=== PATIENT | male | born 1955 | race Caucasian/White ===

== ENCOUNTER → 2016-07-15 | Outpatient (CLI) | payer BC, OTHER ==
--- NOTE | 2016-07-15 15:13 | XR ---
EXAMINATION TYPE: XR foot complete RT DATE OF EXAM: 07/15/2016 3:08 PM CLINICAL HISTORY: Right foot pain with blister over heel. TECHNIQUE: Frontal, lateral, and oblique images of the right foot are obtained. COMPARISON: None FINDINGS: There is no acute fracture/dislocation evident in the right foot. Some varus positioning o f distal toes is noted. The joint spaces in the right foot appear within normal limits. Mild subcutan eous edema over the plantar surface is present. No significant calcaneal spurring is noted. IMPRESSION: As above.
== END | disposition home or self-care (01) ==
LOC: RADXRMAIN 14:52
PROVIDERS: ATTEND Family Medicine
DX: M79.671 Pain in right foot (principal); R60.9 Edema, unspecified

== ENCOUNTER 2016-09-22 20:53 | Emergency (ER) | payer OTHER ==
[2016-09-22] MEDS ORDERED: SODIUM CHLORIDE 0.9% 1,000 ML IV STA (21:02)
[2016-09-22] MEDS ORDERED: MORPHINE SULFATE 4 MG/ML SYRINGE IV STA (21:02)
--- NOTE | 2016-09-22 21:07 | ED ---
General Adult HPI - General Chief complaint: Abdominal Pain Stated complaint: Abd pain Time Seen by Provider: 09/22/16 21:02 Source: patient, RN notes reviewed, old records reviewed Mode of arrival: ambulatory Limitations: no limitations - History of Present Illness Initial comments: This is a 6-year-old male ER for evaluation of bowel pain. Patient having episodic increasing abdominal pain, pressure. Patient has no abdominal surgery history, no fevers or travel she'll nausea vomiting or diarrhea. Patient states pain is is increasing of this time again no fevers. No modifying factors for pain - Related Data Home Medications Medication Instructions Recorded Confirmed Bismuth Subsalicylate 524 mg PO Q1H PRN MDD 8 DOSES 09/22/16 09/22/16 [Pepto-Bismol] HYDROcodone/APAP 7.5-325MG [[place] 1 tab PO TID PRN 09/22/16 09/22/16 7.5-325] Meloxicam 15 mg PO DAILY 09/22/16 09/22/16 tiZANidine [Zanaflex] 4 mg PO BID PRN 09/22/16 09/22/16 Allergies Allergy/AdvReac Type Severity Reaction Status Date / Time No Known Allergies Allergy Verified 09/22/16 21:19 Review of Systems ROS Statement: Those systems with pertinent positive or pertinent negative responses have been documented in the HPI. ROS Other: All systems not noted in ROS Statement are negative. Past Medical History Additional Past Medical History / Comment(s): back and neck pain. History of Any Multi-Drug Resistant Organisms: None Reported Past Surgical History: No Surgical Hx Reported Past Psychological History: No Psychological Hx Reported Smoking Status: Current every day smoker Past Alcohol Use History: None Reported Past Drug Use History: None Reported General Exam Limitations: no limitations General appearance: alert, in no apparent distress Head exam: Present: atraumatic, normocephalic, normal inspection Eye exam: Present: normal appearance, PERRL, EOMI. Absent: scleral icterus, conjunctival injection, periorbital swelling ENT exam: Present: normal exam, mucous membranes moist Neck exam: Present: normal inspection. Absent: tenderness, meningismus, lymphadenopathy Respiratory exam: Present: normal lung sounds bilaterally. Absent: respiratory distress, wheezes, rales, rhonchi, stridor Cardiovascular Exam: Present: regular rate, normal rhythm, normal heart sounds. Absent: systolic murmur, diastolic murmur, rubs, gallop, clicks GI/Abdominal exam: Present: soft, normal bowel sounds. Absent: distended, tenderness, guarding, rebound, rigid Extremities exam: Present: normal inspection, full ROM, normal capillary refill. Absent: tenderness, pedal edema, joint swelling, calf tenderness Back exam: Present: normal inspection Neurological exam: Present: alert, oriented X3, CN II-XII intact Psychiatric exam: Present: normal affect, normal mood Skin exam: Present: warm, dry, intact, normal color. Absent: rash Course Vital Signs 09/22/16 09/22/16 09/22/16 20:55 21:14 22:39 Temperature 99.1 F 98.5 F Pulse Rate 62 57 L 52 L Respiratory 16 16 16 Rate Blood Pressure 156/87 150/88 153/84 O2 Sat by Pulse 99 98 98 Oximetry 09/22/16 23:28 Temperature 97.8 F Pulse Rate 52 L Respiratory 18 Rate Blood Pressure 148/92 O2 Sat by Pulse 100 Oximetry Medical Decision Making - Medical Decision Making 60 male here with nonspecific abdominal pain. Patient will be discharged home - Lab Data Result diagrams: 09/22/16 21:37 09/22/16 21:37 Lab Results 09/22/16 09/22/16 09/22/16 Range/Units 21:37 21:37 21:37 WBC 8.7 (3.8-10.6) k/uL RBC 5.53 (4.30-5.90) m/uL Hgb 17.7 H (13.0-17.5) gm/dL Hct 51.8 (39.0-53.0) % MCV 93.6 (80.0-100.0) fL MCH 32.0 (25.0-35.0) pg MCHC 34.2 (31.0-37.0) g/dL RDW 13.5 (11.5-15.5) % Plt Count 187 (150-450) k/uL Neutrophils % 74 % Lymphocytes % 16 % Monocytes % 7 % Eosinophils % 1 % Basophils % 1 % Neutrophils # 6.4 (1.3-7.7) k/uL Lymphocytes # 1.4 (1.0-4.8) k/uL Monocytes # 0.6 (0-1.0) k/uL Eosinophils # 0.1 (0-0.7) k/uL Basophils # 0.1 (0-0.2) k/uL Sodium 140 (137-145) mmol/L Potassium 4.4 (3.5-5.1) mmol/L Chloride 101 (98-107) mmol/L Carbon Dioxide 30 (22-30) mmol/L Anion Gap 9 mmol/L BUN 16 (9-20) mg/dL Creatinine 0.80 (0.66-1.25) mg/dL Est GFR (MDRD) Af Amer >60 (>60 ml/min/1.73 sqM) Est GFR (MDRD) Non-Af >60 (>60 ml/min/1.73 sqM) Glucose 110 H (74-99) mg/dL Plasma Lactic Acid Matt (0.7-2.0) mmol/L Calcium 9.7 (8.4-10.2) mg/dL Total Bilirubin 1.3 (0.2-1.3) mg/dL AST 17 (17-59) U/L ALT 23 (21-72) U/L Alkaline Phosphatase 67 (38-126) U/L Total Creatine Kinase 44 L (55-170) U/L CK-MB (CK-2) <0.2 (0.0-2.4) ng/mL CK-MB (CK-2) Rel Index Troponin I <0.012 (0.000-0.034) ng/mL Total Protein 7.0 (6.3-8.2) g/dL Albumin 4.3 (3.5-5.0) g/dL Amylase 56 (30-110) U/L Lipase 76 (23-300) U/L 09/22/16 Range/Units 21:37 WBC (3.8-10.6) k/uL RBC (4.30-5.90) m/uL Hgb (13.0-17.5) gm/dL Hct (39.0-53.0) % MCV (80.0-100.0) fL MCH (25.0-35.0) pg MCHC (31.0-37.0) g/dL RDW (11.5-15.5) % Plt Count (150-450) k/uL Neutrophils % % Lymphocytes % % Monocytes % % Eosinophils % % Basophils % % Neutrophils # (1.3-7.7) k/uL Lymphocytes # (1.0-4.8) k/uL Monocytes # (0-1.0) k/uL Eosinophils # (0-0.7) k/uL Basophils # (0-0.2) k/uL Sodium (137-145) mmol/L Potassium (3.5-5.1) mmol/L Chloride (98-107) mmol/L Carbon Dioxide (22-30) mmol/L Anion Gap mmol/L BUN (9-20) mg/dL Creatinine (0.66-1.25) mg/dL Est GFR (MDRD) Af Amer (>60 ml/min/1.73 sqM) Est GFR (MDRD) Non-Af (>60 ml/min/1.73 sqM) Glucose (74-99) mg/dL Plasma Lactic Acid Matt 1.1 (0.7-2.0) mmol/L Calcium (8.4-10.2) mg/dL Total Bilirubin (0.2-1.3) mg/dL AST (17-59) U/L ALT (21-72) U/L Alkaline Phosphatase (38-126) U/L Total Creatine Kinase (55-170) U/L CK-MB (CK-2) (0.0-2.4) ng/mL CK-MB (CK-2) Rel Index Troponin I (0.000-0.034) ng/mL Total Protein (6.3-8.2) g/dL Albumin (3.5-5.0) g/dL Amylase (30-110) U/L Lipase (23-300) U/L - Radiology Data Radiology results: report reviewed (X-ray KUB and CT abdomen and pelvis is negative for acute disease), image reviewed Disposition Clinical Impression: Abdominal pain Disposition: HOME SELF-CARE Condition: Good Instructions: Abdominal Pain (ED) Referrals: Mor Laughlin MD [Primary Care Provider] - 1-2 days
[2016-09-22 21:51] LABS: Basophils # (A) 0.1 k/uL (0-0.2); Basophils % (A) 1 %; CH 32.3; CHCM 34.7; Eosinophils # (A) 0.1 k/uL (0-0.7); Eosinophils % (A) 1 %; HCT 51.8 % (39.0-53.0); HDW 2.46; HGB 17.7 gm/dL (13.0-17.5); Luc # (Auto) 0.15; Luc % (Auto) 2; Lymphocytes # (A) 1.4 k/uL (1.0-4.8); Lymphocytes % (A) 16 %; MCHC 34.2 g/dL (31.0-37.0); MCV 93.6 fL (80.0-100.0); Mean Platelet Volume 7.8; Monocytes # (A) 0.6 k/uL (0-1.0); Monocytes % (A) 7 %; Neutrophils # (A) 6.4 k/uL (1.3-7.7); Neutrophils % (A) 74 %; RBC 5.53 m/uL (4.30-5.90); RDW 13.5 % (11.5-15.5); WBC 8.7 k/uL (3.8-10.6); WBC (Perox) 8.55
[2016-09-22 22:01] LABS: ALT 23 U/L (21-72); AST 17 U/L (17-59); Alkaline Phosphatase 67 U/L (38-126); Amylase 56 U/L (30-110); Anion Gap 9 mmol/L; Blood Urea Nitrogen 16 mg/dL (9-20); Calcium 9.7 mg/dL (8.4-10.2); Carbon Dioxide 30 mmol/L (22-30); Chloride 101 mmol/L (98-107); Glucose 110 mg/dL (74-99); Non-African American GFR(MDRD) >60 (>60 ml/min/1.73 sqM); Potassium 4.4 mmol/L (3.5-5.1); Sodium 140 mmol/L (137-145); Total Bilirubin 1.3 mg/dL (0.2-1.3)
--- NOTE | 2016-09-22 22:04 | XR ---
EXAMINATION TYPE: XR KUB DATE OF EXAM: 09/22/2016 9:53 PM COMPARISON: NONE HISTORY: Abdominal pain TECHNIQUE: 2 views FINDINGS: There is no sign of intestinal obstruction or pneumoperitoneum. Fecal pattern is normal. Ginger ng bases are clear. There are no pathologic calcifications over the kidneys. IMPRESSION: Nonacute abdomen.
[2016-09-22] MEDS ORDERED: ONDANSETRON 4 MG/2 ML VIAL IVP STA (22:07)
[2016-09-22] MEDS ORDERED: PANTOPRAZOLE 40 MG/10 ML VIAL IVP STA (22:07)
[2016-09-22] MEDS ORDERED: RX INFO: IV CONTRAST WAS GIVEN 1 EACH MISC MISCELLANE PRN (22:07)
[2016-09-22 22:11] LABS: Creatine Kinase 44 U/L (55-170)
[2016-09-22 22:25] LABS: Creatine Kinase MB <0.2 ng/mL (0.0-2.4); Troponin I <0.012 ng/mL (0.000-0.034)
[2016-09-22 22:46] VITALS: PULSE 52
--- NOTE | 2016-09-22 22:53 | CT ---
EXAM: CT Abdomen and Pelvis With Intravenous Contrast. CLINICAL HISTORY: Reason: Pain TECHNIQUE: Axial computed tomography images of the abdomen and pelvis with intravenous contrast. CTDI is 10 mGy and DLP is 362.2 mGy-cm. This CT exam was performed using one or more of the following dose reduction techniques: automated exposure control, adjustment of the mA and/or kV according to patient size, and/or use of iterative reconstruction technique. COMPARISON: No relevant prior studies available. FINDINGS: Lower thorax: No acute findings. ABDOMEN: Liver: Unremarkable. No mass. Gallbladder and bile ducts: Unremarkable. No calcified stones. No ductal dilation. Pancreas: Unremarkable. No ductal dilation. No mass. Spleen: Unremarkable. No splenomegaly. Adrenals: Unremarkable. No mass. Kidneys and ureters: Unremarkable. No hydronephrosis. No solid mass. PELVIS: Bladder: Unremarkable. No mass. Reproductive: Unremarkable as visualized. Appendix: No findings to suggest acute appendicitis. ABDOMEN + PELVIS: Stomach and bowel: Moderate sigmoid diverticulosis, without evidence of diverticulitis. No obstruction. Peritoneum: Unremarkable. No significant fluid collection. No free air. Lymph nodes: Unremarkable. No enlarged lymph nodes. Vasculature: Moderate atherosclerotic disease, without abdominal aortic aneurysm. Bones: No acute fracture. IMPRESSION: 1. No acute findings in the abdomen or pelvis. 2. Moderate sigmoid diverticulosis, without evidence of diverticulitis.
[2016-09-22 23:30] VITALS: BP 148/92; RESP 18; TEMP 97.8
[2016-09-22] MEDS ORDERED: MORPHINE SULFATE 2 MG/ML SYRINGE IVP ONE (23:44)
== END 2016-09-22 23:45 | disposition home or self-care (01) ==
LOC: EC 20:53
DX: R10.9 Unspecified abdominal pain (principal); F17.200 Nicotine dependence, unspecified, uncomplicated; Z79.1 Long term (current) use of non-steroidal anti-inflammatories (NSAID); Z79.899 Other long term (current) drug therapy
CPT/HCPCS: 99284; 96374; 96375; 96376; 36415; 80053; 82150; 82550; 82553; 83605; 83690; 84484; 85025; 74000; 74177; 96361 ×2; J2270 ×2; Q9967; C9113

== ENCOUNTER 2016-10-30 07:48 | Day surgery (SDC) | payer OTHER ==
[2016-10-28 09:39] VITALS: BMI 17.3
[~2016-10-30 07:48] MED LIST: LACTATED RINGERS 1,000 ML IV SCH
[2016-10-30 08:12] VITALS: RESP 16; TEMP 97.5
[2016-10-30] MEDS ORDERED: LIDOCAINE 1% 20 ML VIAL (10MG/ML) FOR IV START INTRADERMA ONE (08:19)
[2016-10-30] MEDS ORDERED: PROPOFOL 10 MG/ML 20 ML VIAL IV ONE (09:54)
[2016-10-30] MEDS ORDERED: LIDOCAINE 1% INJ 10MG/ML (20 ML MDV) ONE (09:54)
--- NOTE | 2016-10-30 10:04 | P.GSHP ---
History of Present Illness H&P Date: 10/30/16 Chief Complaint: Abdominal pain Patient here today for upper endoscopy. He has not had one previously. His having upper abdominal pain. He went to the emergency department recently. He had a CAT scan that showed no definite abnormalities. Denies rectal bleeding or melena. Past Medical History Additional Past Medical History / Comment(s): back and neck pain. History of Any Multi-Drug Resistant Organisms: None Reported Past Surgical History: No Surgical Hx Reported Past Anesthesia/Blood Transfusion Reactions: No Reported Reaction Additional Past Anesthesia/Blood Transfusion Reaction / Comment(s): NO PRIOR ANESTHESIA OR SX HX Smoking Status: Current every day smoker - Past Family History Mother Family Medical History: No Reported History Medications and Allergies Home Medications Medication Instructions Recorded Confirmed Type HYDROcodone/APAP 7.5-325MG [[place] 1 tab PO TID PRN 09/22/16 10/30/16 History 7.5-325] Meloxicam 15 mg PO DAILY 09/22/16 10/30/16 History tiZANidine [Zanaflex] 4 mg PO BID PRN 09/22/16 10/30/16 History Ranitidine HCl 300 mg PO DAILY 10/28/16 10/30/16 History Allergies Allergy/AdvReac Type Severity Reaction Status Date / Time No Known Allergies Allergy Verified 10/28/16 09:32 Surgical - Exam Vital Signs Temp Pulse Resp BP Pulse Ox 97.5 F L 48 L 16 181/93 99 10/30/16 08:11 10/30/16 08:11 10/30/16 08:11 10/30/16 08:11 10/30/16 08:11 Physical exam: General: Well-developed, well-nourished HEENT: Normocephalic, sclerae nonicteric Abdomen: Nontender, nondistended Extremities: No edema Neuro: Alert and oriented Assessment and Plan (1) Abdominal pain Narrative/Plan: Will proceed with upper endoscopy at this time Status: Acute
--- NOTE | 2016-10-30 10:14 | P.PCN ---
Date of Procedure: 10/30/16 Preoperative Diagnosis: Postoperative Diagnosis: Procedure(s) Performed: Preoperative Dx: Abdominal pain Postoperative Dx: Duodenal ulcer, small hiatal hernia, gastritis Procedure: EGD with Bx Anesthesia: Sedation Endoscopist: Dr. Lang Specimens: Antrum Endoscopic Procedure: The patient was on the endoscopy table in the left decubitus position. The Olympus gastroscope was inserted into the oropharynx and passed under direct visualization to the region of the third portion of the duodenum. From that point the scope was slowly withdrawn inspecting all surfaces carefully. There was mild duodenitis present. In the duodenal bulb there was noted to be a less than 1 cm ulceration involving the posterior wall. No stigmata of recent bleeding was seen. The pylorus was widely patent. The stomach had diffuse gastritis. Biopsies of antrum took place. Retroflexion revealed a small sliding hiatal hernia. The esophagus was carefully examined. There were no neoplastic inflammatory or polypoid lesions throughout the visualized esophagus. The patient was then taken to the recovery room in stable condition per anesthesia guidelines. Recommendations: Continue antiacid therapy. Advise short-term follow-up in 3-6 months to confirm resolution of this ulcer. Implants: Indications for Procedure: Operative Findings: Description of Procedure:
[2016-10-30 10:48] VITALS: BP 166/91; PULSE 50
== END 2016-10-30 11:10 | disposition home or self-care (01) ==
LOC: ORWHC2ENDO 07:48
PROVIDERS: ATTEND Surgery
DX: K26.9 Duodenal ulcer, unspecified as acute or chronic, without hemorrhage or perforation (principal); K29.50 Unspecified chronic gastritis without bleeding; K29.80 Duodenitis without bleeding; K44.9 Diaphragmatic hernia without obstruction or gangrene; K21.9 Gastro-esophageal reflux disease without esophagitis; G89.29 Other chronic pain; F17.200 Nicotine dependence, unspecified, uncomplicated; Z79.1 Long term (current) use of non-steroidal anti-inflammatories (NSAID); Z79.899 Other long term (current) drug therapy
CPT/HCPCS: 88305; 88342; 43239; J2001; J2704

== ENCOUNTER → 2017-01-02 | Outpatient (CLI) | payer OTHER ==
--- NOTE | 2017-01-02 13:31 | MR ---
EXAMINATION TYPE: MR lumbar spine wo con DATE OF EXAM: 01/02/2017 COMPARISON: 10/05/2015 HISTORY: cervicalgia, lumbago TECHNIQUE: T1 and T2 axial and sagittal images of the lumbar spine are submitted. FINDINGS: There is abnormal signal within the visualized spinal cord at the level of L1 seen on the a xial image which may be artifactual. 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 There is a scoliotic curvature of the vertebral column. At L1-2 there is very mild broad-based central disc bulging but no canal stenosis. Neural foramina ar e patent. At L2-3 there is no disc herniation or canal stenosis. Mild hypertrophic change of the facets. Neural foramina patent. Mild circumferential disc bulging. At L3-4 there is degenerative disc disease and broad-based central and left paracentral disc bulging with hypertrophic change of the facets and ligamentum flavum. There is mild central stenosis and mild bilateral foraminal encroachment. At L4-5 there is broad-based central disc bulging with ligamentum flavum and facet arthropathy. There is mild central stenosis and mild bilateral foraminal encroachment. At L5-S1 there is more advanced facet arthropathy with no canal stenosis. There is left lateral disc bulging resulting in mild to moderate left foraminal encroachment.. IMPRESSION: 1. Abnormal signal within the spinal cord at the level L1 may be artifactual recommend short-term fol low-up or postcontrast imaging. 2. Multilevel mild degenerative disc disease with multilevel disc bulging and hypertrophic changes re sult in mild canal stenosis L3-4 and L4-L5 with foraminal encroachment. 3. Left lateral disc bulging L5-S1 with moderate left foraminal encroachment. EXAMINATION TYPE: MR cspine wo con DATE OF EXAM: 01/02/2017 COMPARISON: 10/05/2015 HISTORY: cervicalgia, lumbago TECHNIQUE: T1 sagittal and coronal, T2 sagittal, and gradient echo axial views of the cervical spine are submitted. FINDINGS: The cranial cervical junction is preserved. No abnormal signal the visualized spinal cord.. At C2-3 there is no disc herniation or canal stenosis. Neural foramina patent. At C3-4 there is posterior spondylosis and minimal retrolisthesis of C2 on C3 which is stable. Degene rative disc disease and bilateral uncovertebral joint hypertrophy is noted which results in moderate bilateral foraminal encroachment. Mild central stenosis. At C4-5 there is severe degenerative disc disease with posterior spondylosis and uncovertebral joint hypertrophy. Broad-based disc bulging seen with moderate to severe right-sided foraminal encroachment and mild to moderate left foraminal encroachment. There is mild central stenosis. At C5-6 there is degenerative disc disease with uncovertebral joint hypertrophy bilaterally moderate bilateral foraminal encroachment. No canal stenosis or focal herniation. Mild facet arthropathy. At C6-7 there is a central disc bulge or small protrusion with mild effacement of thecal sac but no c anal stenosis. Neural foramina patent. At C7-T1 there is right paracentral and lateral disc bulge or small protrusion appears stable. Mild r ight-sided foraminal encroachment. No Canal stenosis. IMPRESSION: 1. Multilevel degenerative disc disease with mild canal stenosis C3-4 and C4-5 due to posterior spon dylosis and hypertrophic changes. 2. Disc bulging or small protrusion C6-7 and C7-T1 are stable. 3. Stable multilevel foraminal encroachment.
== END | disposition home or self-care (01) ==
LOC: RADMRIMAIN 12:11
PROVIDERS: ATTEND Nurse Practitioner Acute Care
DX: M48.02 Spinal stenosis, cervical region (principal); M50.31 Other cervical disc degeneration, high cervical region; M47.812 Spondylosis without myelopathy or radiculopathy, cervical region; M48.06 Spinal stenosis, lumbar region; M51.27 Other intervertebral disc displacement, lumbosacral region; M51.36 Other intervertebral disc degeneration, lumbar region
CPT/HCPCS: 72141; 72148

== ENCOUNTER → 2017-01-18 | Outpatient (CLI) | payer OTHER ==
[2017-01-18 12:21] LABS: Blood Urea Nitrogen 17 mg/dL (9-20); Non-African American GFR(MDRD) >60 (>60 ml/min/1.73 sqM)
--- NOTE | 2017-01-19 12:28 | MR ---
EXAMINATION TYPE: MR lumbar spine w con DATE OF EXAM: 01/18/2017 1:06 PM COMPARISON: MRI lumbar spine 01/02/2017 HISTORY: abnormal mri CONTRAST: The patient was injected with 5 mL intravenous Gadavist gadolinium contrast. Sagittal and axial T1-weighted postcontrast enhanced images obtained. The spinal cord at the L1 level does not demonstrate evidence for an enhancing lesion or pathologic e nhancement. Lumbar segments are intact. No paraspinal masses are identified. Conus medullaris has a normal appe arance. IMPRESSION: 1. No evidence for pathologic enhancement or enhancing lesion within the spinal cord at the L1 level. Other findings as outlined on prior MRI of the spine dated 01/02/2017
== END | disposition home or self-care (01) ==
LOC: RADMRIMAIN 11:54
PROVIDERS: ATTEND Nurse Practitioner Acute Care
DX: M54.5 Low back pain (principal)
CPT/HCPCS: 82565; 84520; 72149; 36415; A9581

== ENCOUNTER 2017-02-07 10:34 | Day surgery (SDC) | payer OTHER ==
[2017-02-04 15:09] VITALS: BMI 19.2
[2017-02-07] MEDS ORDERED: LACTATED RINGERS 1,000 ML IV ONE (12:19)
[2017-02-07 12:20] VITALS: RESP 18; TEMP 98
[2017-02-07] MEDS ORDERED: LIDOCAINE 1% 20 ML VIAL (10MG/ML) FOR IV START INTRADERMA ONE (12:20)
[2017-02-07] MEDS ORDERED: GLYCOPYRROLATE 0.2 MG/ML 2 ML VIAL ONE (12:45)
[2017-02-07] MEDS ORDERED: PROPOFOL 10 MG/ML 20 ML VIAL IV ONE (12:45)
[2017-02-07] MEDS ORDERED: LIDOCAINE 1% INJ 10MG/ML (20 ML MDV) ONE (12:45)
--- NOTE | 2017-02-07 12:47 | P.GSHP ---
History of Present Illness H&P Date: 02/07/17 Chief Complaint: GERD, history of H. pylori Patient underwent upper endoscopy in October of this year. He was found have H. pylori positive biopsies along with a duodenal ulcer. He feels well at this time. No abdominal pain. No melena or rectal bleeding. Past Medical History Past Medical History: Musculoskeletal Disorder Additional Past Medical History / Comment(s): back and neck pain, hx. duodenal ulcer, abd. pain much improved History of Any Multi-Drug Resistant Organisms: None Reported Past Surgical History: No Surgical Hx Reported Additional Past Surgical History / Comment(s): teeth pulled, EGD Past Anesthesia/Blood Transfusion Reactions: No Reported Reaction Additional Past Anesthesia/Blood Transfusion Reaction / Comment(s): NO PRIOR ANESTHESIA OR SX HX Smoking Status: Current every day smoker - Past Family History Mother Family Medical History: No Reported History Medications and Allergies Home Medications Medication Instructions Recorded Confirmed Type HYDROcodone/APAP 7.5-325MG [[place] 1 tab PO TID PRN 09/22/16 02/04/17 History 7.5-325] Omeprazole [PriLOSEC] 20 mg PO AC-BRKFST #90 cap 10/30/16 02/04/17 Rx Sucralfate [Carafate] 1 gm PO ACHS #120 tab 10/30/16 02/04/17 Rx Allergies Allergy/AdvReac Type Severity Reaction Status Date / Time No Known Allergies Allergy Verified 02/04/17 14:35 Surgical - Exam Vital Signs Temp Pulse Resp BP Pulse Ox 98.0 F 53 L 18 133/88 100 02/07/17 12:19 02/07/17 12:19 02/07/17 12:19 02/07/17 12:19 02/07/17 12:19 Physical exam: General: Well-developed, well-nourished HEENT: Normocephalic, sclerae nonicteric Abdomen: Nontender, nondistended Extremities: No edema Neuro: Alert and oriented Assessment and Plan (1) GERD (gastroesophageal reflux disease) Narrative/Plan: Will proceed with upper endoscopy at this time. Status: Acute
--- NOTE | 2017-02-07 12:56 | P.PCN ---
Date of Procedure: 02/07/17 Procedure(s) Performed: Preoperative Dx: Peptic ulcer disease, history of H. pylori Postoperative Dx: Minimal gastritis Procedure: EGD with Bx Anesthesia: Sedation Endoscopist: Dr. Lang Specimens: Antrum Endoscopic Procedure: The patient was on the endoscopy table in the left decubitus position. The Olympus gastroscope was inserted into the oropharynx and passed under direct visualization to the region of the third portion of the duodenum. From that point the scope was slowly withdrawn inspecting all surfaces carefully. There were no neoplastic inflammatory or polypoid lesions throughout the duodenum. The pylorus was widely patent. The stomach was carefully inspected. There was minimal gastritis. A biopsy of the antrum took place to rule out H. pylori. Retroflexion revealed a normal hiatus. The esophagus was then carefully examined. There were no neoplastic inflammatory or polypoid lesions throughout the visualized esophagus. The patient was then taken to the recovery room in stable condition per anesthesia guidelines. Recommendations: Await biopsy results. Continue antiacid therapy.
[2017-02-07 13:39] VITALS: BP 135/85; PULSE 77
== END 2017-02-07 14:01 | disposition home or self-care (01) ==
LOC: ORWHC2ENDO 10:34
PROVIDERS: ATTEND Surgery
DX: K21.9 Gastro-esophageal reflux disease without esophagitis (principal); K29.50 Unspecified chronic gastritis without bleeding; F17.200 Nicotine dependence, unspecified, uncomplicated; Z79.899 Other long term (current) drug therapy
CPT/HCPCS: 88305; 88342; 43239; J2001; J2704

== ENCOUNTER 2020-11-16 08:06 | Day surgery (SDC) | payer MEDICARE, OTHER ==
[2020-11-14 14:39] VITALS: BMI 17.6
[2020-11-16 08:20] VITALS: TEMP 97.8
[2020-11-16] MEDS ORDERED: LACTATED RINGERS 1,000 ML IV ONE (08:20)
[2020-11-16] MEDS ORDERED: PROPOFOL 10 MG/ML 20 ML VIAL IV ONE (08:35)
[2020-11-16] MEDS ORDERED: LIDOCAINE 1% INJ 10MG/ML (20 ML MDV) ONE (08:35)
--- NOTE | 2020-11-16 08:38 | P.GSHP ---
History of Present Illness H&P Date: 11/16/20 Chief Complaint: Screening colonoscopy This a 64-year-old male who presents today for screening colonoscopy. Patient denies any significant GI complaints. Past Medical History Past Medical History: Musculoskeletal Disorder Additional Past Medical History / Comment(s): back and neck pain. History of Any Multi-Drug Resistant Organisms: None Reported Past Surgical History: No Surgical Hx Reported Additional Past Surgical History / Comment(s): teeth pulled, EGD Past Anesthesia/Blood Transfusion Reactions: No Reported Reaction Additional Past Anesthesia/Blood Transfusion Reaction / Comment(s): NO PRIOR ANESTHESIA OR SX HX Smoking Status: Current every day smoker - Past Family History Mother Family Medical History: No Reported History Medications and Allergies Home Medications Medication Instructions Recorded Confirmed Type oxyCODONE HCL/ACETAMINOPHEN 1 each PO TID 11/14/20 11/14/20 History [Oxycodone-Acetaminophn 7.5-325] Allergies Allergy/AdvReac Type Severity Reaction Status Date / Time No Known Allergies Allergy Verified 11/14/20 14:33 Surgical - Exam Vital Signs Temp Pulse Resp BP Pulse Ox 97.8 F 84 18 161/94 97 11/16/20 08:19 11/16/20 08:19 11/16/20 08:19 11/16/20 08:19 11/16/20 08:19 - General well developed, well nourished, no distress - Eyes PERRL - ENT normal pinna - Neck no masses - Respiratory normal expansion - Cardiovascular Rhythm: regular - Abdomen Abdomen: soft, non tender Assessment and Plan Assessment: We'll perform screening colonoscopy
--- NOTE | 2020-11-16 08:52 | P.OP ---
Date of Procedure: 11/16/20 Preoperative Diagnosis: Screening colonoscopy Postoperative Diagnosis: Diverticulosis Tortuous colon Procedure(s) Performed: Colonoscopy Anesthesia: MAC Surgeon: George Brian Pathology: none sent Condition: stable Disposition: PACU Description of Procedure: Patient's placed on the endoscopy table in the lateral position. He received IV sedation. Digital rectal exam was performed which revealed no abnormalities. The flexible colonoscope was then placed patient anus and passed throughout the colon. The colonoscope 90 passed beyond the sigmoid colon severe tortuosity valve. At this point the scope was withdrawn. The pediatric scope was reinserted. And once again the pediatric scope could not traverse sigmoid colon. Due to tortuosity of the bowel. This puts withdrawn. Patient was scheduled for a barium enema.
[2020-11-16 09:14] VITALS: RESP 18
[2020-11-16 09:48] VITALS: BP 128/886; PULSE 62
--- NOTE | 2020-11-16 12:09 | FL ---
EXAMINATION TYPE: FL barium enema w air contrast DATE OF EXAM: 11/16/2020 COMPARISON: NONE HISTORY: Change in bowel habits. TECHNIQUE: Barium and air were instilled into the colon from the rectum to the cecum. Multiple spot and overhead images are obtained. FINDINGS: I do not see evidence for annular constricting lesion or fungating mass. No polypoid lesio ns are identified. Mucosal fold pattern has a normal appearance. No evidence for inflammatory bowel disease. Normal-appearing appendix which is retrocecal. No significant diverticular disease. IMPRESSION: No significant abnormality identified at this time. Symptoms persist consider direct visualization.
== END 2020-11-16 09:50 | disposition home or self-care (01) ==
LOC: ORWHC2ENDO 08:06
PROVIDERS: ATTEND Surgery
DX: Z12.11 Encounter for screening for malignant neoplasm of colon (principal); F17.200 Nicotine dependence, unspecified, uncomplicated; M19.90 Unspecified osteoarthritis, unspecified site; K21.9 Gastro-esophageal reflux disease without esophagitis
CPT/HCPCS: 45378; 74280; J2001; J2704

== ENCOUNTER 2020-12-24 10:31 | Emergency (ER) | payer MEDICARE ==
[2020-12-24 10:36] VITALS: BP 128/86; PULSE 65; RESP 16
[2020-12-24 10:39] VITALS: TEMP 98
[2020-12-24] MEDS ORDERED: KETOROLAC 15 MG/ML 1 ML VIAL IM STA (10:46)
--- NOTE | 2020-12-24 10:56 | ED ---
General Adult HPI - General Chief complaint: Extremity Injury, Upper Stated complaint: Wrist injury Time Seen by Provider: 12/24/20 10:37 Source: patient, RN notes reviewed Mode of arrival: ambulatory Limitations: no limitations - History of Present Illness Initial comments: 65-year-old male with a past medical history of back and neck pain present to [facility] emergency room for a chief complaint of right wrist pain. Patient states about a week ago he was skating in [place] when he fell on the right wrist. Patient states it has been swollen since he fell and he has had pain in the wrist and hand intermittently. Patient did not hit his head. Patient denies any other injuries.Patient has no other complaints at this time including shortness of breath, chest pain, abdominal pain, nausea or vomiting, headache, or visual changes. - Related Data Home Medications Medication Instructions Recorded Confirmed oxyCODONE HCL/ACETAMINOPHEN 1 each PO TID 11/14/20 11/14/20 [Oxycodone-Acetaminophn 7.5-325] Allergies Allergy/AdvReac Type Severity Reaction Status Date / Time No Known Allergies Allergy Verified 12/24/20 10:36 Review of Systems ROS Statement: Those systems with pertinent positive or pertinent negative responses have been documented in the HPI. ROS Other: All systems not noted in ROS Statement are negative. Past Medical History Past Medical History: Musculoskeletal Disorder Additional Past Medical History / Comment(s): back and neck pain. History of Any Multi-Drug Resistant Organisms: None Reported Past Surgical History: No Surgical Hx Reported Additional Past Surgical History / Comment(s): teeth pulled, EGD Past Anesthesia/Blood Transfusion Reactions: No Reported Reaction Additional Past Anesthesia/Blood Transfusion Reaction / Comment(s): NO PRIOR ANESTHESIA OR SX HX Past Psychological History: No Psychological Hx Reported Smoking Status: Current every day smoker Past Alcohol Use History: Rare Past Drug Use History: None Reported - Past Family History Mother Family Medical History: No Reported History General Exam Limitations: no limitations General appearance: alert, in no apparent distress Head exam: Present: atraumatic Eye exam: Present: normal appearance, PERRL, EOMI. Absent: scleral icterus ENT exam: Present: normal exam, mucous membranes moist Neck exam: Present: normal inspection, full ROM. Absent: tenderness Respiratory exam: Present: normal lung sounds bilaterally. Absent: respiratory distress, wheezes Cardiovascular Exam: Present: regular rate, normal rhythm, normal heart sounds Extremities exam: Present: normal capillary refill (Capillary refill less than 2 seconds, radial pulse 2+ right upper extremity), joint swelling (Mild edema of the right wrist without erythema.), other (Sensation intact right upper extremity). Absent: full ROM (pt has about 45 of flexion and extension of the right wrist.), tenderness (no Tenderness in the hand or wrist.) Course Vital Signs 12/24/20 10:33 Temperature 98 F Pulse Rate 65 Respiratory 16 Rate Blood Pressure 128/86 O2 Sat by Pulse 98 Oximetry Procedures - Orthopedic Splinting/Casting Injury #1 Side: right Upper Extremity Injury Location: short arm Upper Extremity Immobilizer: volar splint Medical Decision Making - Medical Decision Making X-ray revealed a distal radius fracture. Neurovascular status intact. Patient was splinted. Will follow up with orthopedics. He'll return here for any worsening symptoms. Disposition Clinical Impression: Distal radius fracture Disposition: HOME SELF-CARE Condition: Good Instructions (If sedation given, give patient instructions): Wrist Fracture in Adults (ED) Additional Instructions: Please take Motrin for pain. If pain is severe take Tylenol 3. Follow up with orthopedics. Keep splint in place. Return to the emergency room for any worsening symptoms. Is patient prescribed a controlled substance at d/c from ED?: No Referrals: Mor Laughlin MD [Primary Care Provider] - 1-2 days Inocencio Yang DO [Doctor of Osteopathic Medicine] - 1-2 days Time of Disposition: 12:19
--- NOTE | 2020-12-24 11:39 | XR ---
Right hand and right wrist HISTORY: Trauma and pain 3 views of the right hand, 4 views of the right wrist There is a distal right intra-articular metaphyseal radial fracture which is nondisplaced. No evident dislocation. There is associated soft tissue swelling present. IMPRESSION: Distal radial fracture
[2020-12-24] MEDS ORDERED: ACET/COD 300 MG/30 MG STARTER PACK 6 TAB BTL PO STA (12:19)
== END 2020-12-24 12:30 | disposition home or self-care (01) ==
LOC: EC 10:31
DX: S52.501A Unspecified fracture of the lower end of right radius, initial encounter for closed fracture (principal); F17.200 Nicotine dependence, unspecified, uncomplicated; V00.131A Fall from skateboard, initial encounter; Y93.21 Activity, ice skating
CPT/HCPCS: 73110; 73130; 29125; 96372; 99284; J1885

== ENCOUNTER → 2022-10-15 | Outpatient (CLI) | payer MEDICARE ==
--- NOTE | 2022-10-15 10:54 | XR ---
EXAMINATION TYPE: XR shoulder complete RT DATE OF EXAM: 10/15/2022 10:24 AM INDICATION: Patient age:Male; 66 years old; Reason for study: PAIN; COMPARISON: None TECHNIQUE: The right shoulder was examined in AP, internally rotated and scapular Y projections. FINDINGS: No evidence of acute osseous pathology, joint dislocation, or soft tissue swelling. The remaining por tions of the visualized chest are unremarkable. IMPRESSION: 1. No acute osseous pathology. 2. No significant degeneration changes. Consider further evaluation MRI.
== END | disposition home or self-care (01) ==
LOC: RADXRMAIN 10:03
PROVIDERS: ATTEND Family Medicine
DX: M25.511 Pain in right shoulder (principal)